=== PATIENT | female | born 1955 | race African-American/Black ===

== ENCOUNTER 2017-02-08 19:02 | Emergency (ER) | payer OTHER ==
[~2017-02-08] VITALS: Ht 170.2 cm; Wt 59.0 kg
[2017-02-08 19:15] VITALS: BP 152/72
[2017-02-08 19:47] LABS: BASOPHILS % (AUTO) 1.8 % (0.0-2.0); EOSINOPHILS % (AUTO) 0.9 % (0.0-3.0); LYMPHOCYTES % (AUTO) 38.4 % (20.0-45.0); MEAN CORPUSCULAR HEMOGLOBIN 31.4 PG (27.0-31.0); MEAN CORPUSCULAR HGB CONC 31.4 G/DL (32.0-36.0); MEAN CORPUSCULAR VOLUME 100 FL (80-99); NEUTROPHILS % (AUTO) 51.8 % (45.0-75.0); PLATELET COUNT 234 K/UL (150-450); RED BLOOD COUNT 4.03 M/UL (4.20-5.40); RED CELL DISTRIBUTION WIDTH 13.1 % (11.6-14.8); WHITE BLOOD COUNT 9.8 K/UL (4.8-10.8)
--- NOTE | 2017-02-08 19:55 | Emergency Room Report ---
History of Present Illness General Chief Complaint: Chest Pain Source: Patient Present Illness HPI 61-year-old female with no significant past medical history p/w chest pain for 2 days. Chest pain started while at rest and on exertion. Localized to substernal area, no radiation to back or other areas, sharp in nature, gradual in onset, lasted 3-4 min, multiple episodes. Denies SOB. Denies palpitations, diaphoresis, n/v. Denies fever, chills, cough, abd pain. Denies trauma. Last stress test was within 2 years ago which was negative. Patient has never had a cardiac catheterization. Denies smoking, no family history of cardiac disease at a young age. Allergies: Coded Allergies: No Known Allergies (Unverified , 02/08/17) Patient History Past Medical History: see triage record Past Surgical History: none Pertinent Family History: none Last Menstrual Period: 2010 Now: No : 2 Para: 2 Reviewed Nursing Documentation: PMH: Agreed, PSxH: Agreed Nursing Documentation-PMH Hx Hypertension: Yes Review of Systems All Other Systems: negative except mentioned in HPI Physical Exam Vital Signs Date Time Temp Pulse Resp B/P (MAP) Pulse Ox O2 Delivery O2 Flow Rate FiO2 02/08/17 19:06 98.6 87 18 152/72 100 Room Air Sp02 EP Interpretation: reviewed, normal General Appearance: normal inspection, well appearing, no apparent distress, alert, GCS 15, non-toxic Head: normocephalic, atraumatic Eyes: bilateral eye normal inspection, bilateral eye PERRL, bilateral eye EOMI ENT: normal ENT inspection, normal pharynx, normal voice, moist mucus membranes Neck: normal inspection, full range of motion, supple Respiratory: normal inspection, lungs clear, normal breath sounds, no respiratory distress, no retraction, no wheezing, speaking full sentences, chest symmetrical Cardiovascular #1: normal inspection, regular rate, rhythm, no edema, normal capillary refill Cardiovascular #2: 2+ radial (R), 2+ radial (L) Gastrointestinal: normal inspection, non tender, soft, non-distended, no guarding Musculoskeletal: normal inspection, back normal, normal range of motion, non- tender Neurologic: normal inspection, alert, oriented x3, responsive, motor strength/ tone normal, sensory intact, normal gait, speech normal Psychiatric: normal inspection, judgement/insight normal, memory normal Skin: normal inspection, normal color, no rash, warm/dry, well hydrated, normal turgor Medical Decision Making Diagnostic Impression: Primary Impression: Chest pain ER Course 61-year-old female p/w CP DDX: ACS vs. CHF vs. pneumonia vs. gastritis/GERD vs. pneumothorax PE on differential however at this time there are other more likely diagnoses. Plan: IV access, obtain labs including troponin, EKG, CXR ASA ER course: Patient was treated with ASA. Patient has remained on a monitor, HD stable, pt has had no chest pain during ED stay negative x 1 sufficient as pt has been having the intermittent cp x 2 days states she feels like it is her anxiety has been nad during eD stay initailly placed admission for patient, however patient states she feels well enough to go home states she can see a shell machine operator outpatient Disposition: Patient DCed home strict return prec given such as return of cp, sob diaphoresis, n/v she understands and agrees with plan Please note that this Emergency Department Report was dictated using [employer] volunteer services technology software, occasionally this can lead to erroneous entry secondary to interpretation by the dictation equipment. EKG Diagnostic Results EP Interpretation: Yes Rate: normal Rhythm: NSR ST Segments: No acute changes no ASA given to patient: y Rhythm Strip EP Interpretation: Yes Rate: 73 Rhythm: NSR, no PVCs, no ectopy Chest X-ray CXR: Ordered: Yes 1 view Indication: Chest pain EP interpretation: Yes Interpretation: No consolidation, no effusion, no PTX, no acute cardiopulmonary disease Impression: No acute disease Electronically signed by Zion Cavazos MD Laboratory Tests Test 02/08/17 19:20 White Blood Count 9.8 K/UL (4.8-10.8) Red Blood Count 4.03 M/UL (4.20-5.40) L Hemoglobin 12.7 G/DL (12.0-16.0) Hematocrit 40.2 % (37.0-47.0) Mean Corpuscular Volume 100 FL (80-99) H Mean Corpuscular Hemoglobin 31.4 PG (27.0-31.0) H Mean Corpuscular Hemoglobin Concent 31.4 G/DL (32.0-36.0) L Red Cell Distribution Width 13.1 % (11.6-14.8) Platelet Count 234 K/UL (150-450) Mean Platelet Volume 9.0 FL (6.5-10.1) Neutrophils (%) (Auto) 51.8 % (45.0-75.0) Lymphocytes (%) (Auto) 38.4 % (20.0-45.0) Monocytes (%) (Auto) 7.0 % (1.0-10.0) Eosinophils (%) (Auto) 0.9 % (0.0-3.0) Basophils (%) (Auto) 1.8 % (0.0-2.0) Sodium Level 144 MMOL/L (136-145) Potassium Level 3.6 MMOL/L (3.5-5.1) Chloride Level 107 MMOL/L (98-107) Carbon Dioxide Level 31 MMOL/L (21-32) Anion Gap 6 mmol/L (5-15) Blood Urea Nitrogen 13 mg/dL (7-18) Creatinine 0.8 MG/DL (0.55-1.30) Estimate Glomerular Filtration Rate > 60 mL/min (>60) Glucose Level 100 MG/DL (74-106) Calcium Level 9.6 MG/DL (8.5-10.1) Total Bilirubin 0.4 MG/DL (0.2-1.0) Aspartate Amino Transferase (AST) 12 U/L (15-37) L Alanine Aminotransferase (ALT) 22 U/L (12-78) Alkaline Phosphatase 34 U/L (46-116) L Troponin I 0.001 ng/mL (0.000-0.056) Pro-B-Type Natriuretic Peptide 37 pg/mL (0-125) Total Protein 7.7 G/DL (6.4-8.2) Albumin 4.1 G/DL (3.4-5.0) Globulin 3.6 g/dL Albumin/Globulin Ratio 1.1 (1.0-2.7) Last Vital Signs Date Time Temp Pulse Resp B/P (MAP) Pulse Ox O2 Delivery O2 Flow Rate FiO2 02/08/17 19:15 98.6 85 18 152/72 100 Room Air Disposition: HOME, SELF-CARE Condition: Improved Zion Cavazos M.D. Feb 08, 2017 19:55
[2017-02-08 19:57] LABS: ANION GAP 6 mmol/L (5-15); CALCIUM 9.6 MG/DL (8.5-10.1); CARBON DIOXIDE 31 MMOL/L (21-32); CHLORIDE 107 MMOL/L (98-107); CREATININE 0.8 MG/DL (0.55-1.30); GLOMERULAR FILTRATION RATE > 60 mL/min (>60); POTASSIUM 3.6 MMOL/L (3.5-5.1); SODIUM 144 MMOL/L (136-145)
[2017-02-08 20:11] LABS: ALANINE AMINOTRANSFERASE 22 U/L (12-78); ALBUMIN/GLOBULIN RATIO 1.1 (1.0-2.7); ASPARTATE AMINO TRANSFERASE 12 U/L (15-37); TOTAL PROTEIN 7.7 G/DL (6.4-8.2)
[2017-02-08 20:40] VITALS: BP 116/95
--- NOTE | 2017-02-09 11:37 | Diagnostic Imaging Report ---
Indication: PAIN Technique: One view of the chest Comparison: none Findings: Lungs and pleural spaces are clear. Heart size is normal. Impression: No acute process
--- NOTE | 2017-02-09 16:25 | Cardiology Report ---
APPROVED REPORT EKG Measurement Heart [id number] Normal sinus rhythm Possible Left atrial enlargement Borderline ECG
== END 2017-02-08 20:40 | disposition home or self-care (01) ==
LOC: EMR 19:42
DX: R07.9 Chest pain, unspecified (principal); I10 Essential (primary) hypertension
CPT/HCPCS: 36415; 71010; 80053; 83880; 84484; 85025; 93005; 99283

== ENCOUNTER 2017-05-23 10:00 | Emergency (ER) | payer OTHER ==
[~2017-05-23] VITALS: Ht 170.2 cm; Wt 54.4 kg
[2017-05-23] MEDS ORDERED: ALBUTEROL2.5 MG/3 M HHN (10:19)
[2017-05-23] MEDS ORDERED: PREDNISONE20 MG ORAL (10:19)
[2017-05-23] MEDS ORDERED: COMPACT COMPRE1 EACH MC (10:19)
[2017-05-23] MEDS ORDERED: TESSALON PERLE100 MG ORAL (11:01)
[2017-05-23 11:32] VITALS: BP 139/85
--- NOTE | 2017-05-23 11:38 | Diagnostic Imaging Report ---
Indication: Dyspnea Comparison: 02/08/2017 A single view chest radiograph was obtained. Findings: Cardiomediastinal appearance is within normal limits for age. Pulmonary vascularity is appropriate. The diaphragmatic contour is smooth and costophrenic angles are sharp. No pleural effusions are identified. The bones are unremarkable. Impression: No acute findings
--- NOTE | 2017-05-23 12:43 | Emergency Room Report ---
History of Present Illness General Chief Complaint: Upper Respiratory Illness Source: Patient Present Illness HPI 61-year-old female, cough, runny nose for 5 days. Cough is productive with clear phlegm. Pt still eating/drinking well. +sick contacts (grandchildren are sick) No recent travel. No SOB, cp, abdominal pain, n/v/d. Patient also stating that for the last year she has had decreased appetite, has been following up with her primary care doctor for routine care Allergies: Coded Allergies: No Known Allergies (Unverified , 02/08/17) Patient History Past Medical History: see triage record Past Surgical History: none Pertinent Family History: none Last Menstrual Period: unknown Now: No Reviewed Nursing Documentation: PMH: Agreed, PSxH: Agreed Nursing Documentation-PMH Past Medical History: No History, Except For Hx Hypertension: Yes Review of Systems All Other Systems: negative except mentioned in HPI Physical Exam Vital Signs Date Time Temp Pulse Resp B/P (MAP) Pulse Ox O2 Delivery O2 Flow Rate FiO2 05/23/17 10:03 98.8 95 16 144/70 98 Room Air 98.8 Sp02 EP Interpretation: reviewed, normal General Appearance: normal inspection, well appearing, no apparent distress, alert, GCS 15, non-toxic Head: normocephalic, atraumatic Eyes: bilateral eye normal inspection, bilateral eye PERRL, bilateral eye EOMI ENT: normal ENT inspection, normal pharynx, normal voice, moist mucus membranes Neck: normal inspection, full range of motion, supple Respiratory: normal inspection, lungs clear, normal breath sounds, no respiratory distress, no retraction, no wheezing, speaking full sentences, chest symmetrical Cardiovascular #1: normal inspection, regular rate, rhythm, no edema, normal capillary refill Cardiovascular #2: 2+ radial (R), 2+ radial (L) Gastrointestinal: normal inspection, non tender, soft, non-distended, no guarding Musculoskeletal: normal inspection, back normal, normal range of motion, non- tender Neurologic: normal inspection, alert, oriented x3, responsive, motor strength/ tone normal, sensory intact, normal gait, speech normal Psychiatric: normal inspection, judgement/insight normal, memory normal Skin: normal inspection, normal color, no rash, warm/dry, well hydrated, normal turgor Medical Decision Making Diagnostic Impression: Primary Impression: Upper respiratory infection ER Course 61-year-old female p/w runny nose, cough Appears non- toxic, well hydrated, tolerating PO DDX: Viral URI / pneumonia Plan: None in Emergency Room ER course: Pt stable in ED, remains nontoxic appearing, no sob. Tolerating PO Disposition: Patient discharged to home with Isaac Castellano Patient instructed to follow up with PMD in 1 week. Please note that this Emergency Department Report was dictated using [employer] and events coordinator technology software, occasionally this can lead to erroneous entry secondary to interpretation by the dictation equipment Last Vital Signs Date Time Temp Pulse Resp B/P (MAP) Pulse Ox O2 Delivery O2 Flow Rate FiO2 05/23/17 11:32 98.2 85 18 139/85 98 05/23/17 10:54 Room Air Disposition: HOME, SELF-CARE Condition: Improved Scripts Benzonatate* (ISAAC POLLOCK*) 100 Mg Capsule 100 MG ORAL THREE TIMES A DAY for 7 Days, #21 MARIS Prov: Zion Cavazos M.D. 05/23/17 Referrals: [facility],REFERR[facility] (PCP) Patient Instructions: Upper Respiratory Infection, Adult Zion Cavazos M.D. May 23, 2017 12:43
== END 2017-05-23 11:36 | disposition home or self-care (01) ==
LOC: EMR 10:33
DX: J06.9 Acute upper respiratory infection, unspecified (principal); I10 Essential (primary) hypertension
CPT/HCPCS: 71045; 99283

== ENCOUNTER 2017-08-01 00:21 | Emergency (ER) | payer OTHER ==
[~2017-08-01] VITALS: Ht 170.2 cm; Wt 59.0 kg
[~2017-08-01 00:21] MED LIST: ALBUTEROL2.5 MG/3 M HHN; COMPACT COMPRE1 EACH MC; PREDNISONE20 MG ORAL; TESSALON PERLE100 MG ORAL
[2017-08-01] MEDS ORDERED: NKM (00:30)
[2017-08-01] MEDS ORDERED: PREDNISONE20 MG ORAL (00:49)
[2017-08-01] MEDS ORDERED: BENADRYL25 MG ORAL (00:49)
--- NOTE | 2017-08-01 00:50 | Emergency Room Report ---
History of Present Illness General Chief Complaint: Allergic Reaction Source: Patient Present Illness HPI Is a 61-year-old female who presents with chief complaint of possible allergic reaction. She has itching rash on her body. Onset today. Has not anything for it. Occur after she was at the beach walking on the sand. Denies any other complaint. No respiratory distress. Never had this problem before. No new medicine or food. Allergies: Coded Allergies: No Known Allergies (Unverified , 02/08/17) Patient History Past Medical History: see triage record, old chart reviewed Past Surgical History: other Pertinent Family History: none Social History: Denies: smoking Now: No Immunizations: other Reviewed Nursing Documentation: PMH: Agreed; PSxH: Agreed Nursing Documentation-PMH Past Medical History: No History, Except For Hx Hypertension: Yes Review of Systems Eye: Denies: eye pain, blurred vision ENT: Denies: ear pain, nose congestion, throat swelling Respiratory: Denies: cough, shortness of breath Cardiovascular: Denies: chest pain, palpitations Gastrointestinal: Denies: abdominal pain, diarrhea, nausea, vomiting Musculoskeletal: Denies: back pain, joint pain Skin: Denies: rash Neurological: Denies: headache, numbness Endocrine: Denies: increased thirst, increased urine Hematologic/Lymphatic: Denies: easy bruising All Other Systems: negative except mentioned in HPI Physical Exam Vital Signs Date Time Temp Pulse Resp B/P (MAP) Pulse Ox O2 Delivery O2 Flow Rate FiO2 08/01/17 00:24 97.5 72 16 156/79 99 Room Air 97.5 vitals with high blood pressure Sp02 EP Interpretation: reviewed, normal General Appearance: well appearing, no apparent distress, alert Head: normocephalic, atraumatic Eyes: bilateral eye PERRL, bilateral eye EOMI ENT: hearing grossly normal, normal pharynx Neck: full range of motion, supple, no meningismus Respiratory: chest non-tender, lungs clear, normal breath sounds Cardiovascular #1: regular rate, rhythm, no murmur Gastrointestinal: normal bowel sounds, non tender, no mass, no organomegaly, no bruit, non-distended Musculoskeletal: back normal, gait/station normal, normal range of motion Neurologic: alert, oriented x3 Psychiatric: mood/affect normal Skin: warm/dry Medical Decision Making Diagnostic Impression: Primary Impression: Allergic reaction Qualified Codes: T78.40XA - Allergy, unspecified, initial encounter ER Course Patient with allergic reaction. No evidence of anaphylaxis. No evidence of rest or distress. We'll discharge home. Last Vital Signs Date Time Temp Pulse Resp B/P (MAP) Pulse Ox O2 Delivery O2 Flow Rate FiO2 08/01/17 00:24 97.5 72 16 156/79 99 Room Air 97.5 Status: improved Disposition: HOME, SELF-CARE Condition: Stable Scripts Prednisone* (PREDNISONE*) 20 Mg Tablet 40 MG ORAL DAILY, #8 TAB Prov: TIFFANY GALLEGOS M.D. 08/01/17 Diphenhydramine Hcl* (BENADRYL*) 25 Mg Capsule 50 MG ORAL Q6H PRN for Itching, #30 CAP Prov: TIFFANY GALLEGOS M.D. 08/01/17 Patient Instructions: Allergies Additional Instructions: Follow-up your doctor in 7 days. If symptoms continue, you may need a referral to see an floor tech. Return of worse. TIFFANY GALLEGOS M.D. August 01, 2017 00:50
[2017-08-01 01:00] VITALS: BP 154/83
[2017-08-01 01:02] VITALS: BP 154/83
== END 2017-08-01 01:02 | disposition home or self-care (01) ==
LOC: EMR 00:47
DX: T78.40XA Allergy, unspecified, initial encounter (principal); X58.XXXA Exposure to other specified factors, initial encounter; R21 Rash and other nonspecific skin eruption; I10 Essential (primary) hypertension
CPT/HCPCS: 99284; J7512